=== PATIENT | female | born 1990 | race Caucasian/White ===

== ENCOUNTER 2018-06-26 21:29 | Emergency (ER) | payer SELFPAY ==
[~2018-06-26] VITALS: Ht 162.6 cm; Wt 45.4 kg
[2018-06-26 21:30] VITALS: BP_SYST 116
[2018-06-26] MEDS ORDERED: KETOROLAC TROMETHAMINE 30 MG VIAL IM ONE (22:30)
[2018-06-26] MEDS ORDERED: OSELTAMIVIR PHOSPHATE 75 MG CAPSULE PO ONE (22:30)
[2018-06-26] MEDS ORDERED: ONDANSETRON 4 MG ODT TAB PO ONE (23:30)
[2018-06-26 23:40] VITALS: BP_SYST 98
== END 2018-06-26 23:40 | disposition home or self-care (01) ==
LOC: SED 21:29
DX: J10.1 Influenza due to other identified influenza virus with other respiratory manifestations (principal); R11.10 Vomiting, unspecified
CPT/HCPCS: 36415; 86710; 96372; 99283; G9035; J1885; Q0162

== ENCOUNTER 2018-08-14 01:54 | Emergency (ER) | payer OTHER ==
[~2018-08-14] VITALS: Ht 160 cm; Wt 49.0 kg
[2018-08-14 01:58] VITALS: BP_SYST 159
== END 2018-08-14 02:30 | disposition home or self-care (01) ==
LOC: SED 01:54
DX: S60.222A Contusion of left hand, initial encounter (principal); W22.8XXA Striking against or struck by other objects, initial encounter; Y93.89 Activity, other specified; Y92.89 Other specified places as the place of occurrence of the external cause; Y99.8 Other external cause status
CPT/HCPCS: 99283

== ENCOUNTER 2018-09-09 16:07 | Emergency (ER) | payer OTHER ==
[~2018-09-09] VITALS: Ht 160 cm; Wt 49.9 kg
[2018-09-09 16:27] VITALS: BP_SYST 109
[2018-09-09 17:13] LABS: BASOPHILS % (AUTO) 0.5 % (0.0-2.0); EOSINOPHILS # (AUTO) 0.1 K/uL (0.0-0.4); EOSINOPHILS % (AUTO) 1.3 % (0.0-4.0); HEMATOCRIT 38.2 % (36-48); HEMOGLOBIN 12.7 g/dL (12.0-16.0); LYMPHOCYTES # (AUTO) 1.5 K/uL (1.0-5.5); LYMPHOCYTES % (AUTO) 24.2 % (20.5-51.5); MEAN CORPUSCULAR HEMOGLOBIN 29 pg (27-31); MEAN CORPUSCULAR HGB CONC 33 % (32-36); MEAN CORPUSCULAR VOLUME 88 fL (79.0-98.0); MONOCYTES # (AUTO) 0.4 K/uL (0.0-1.0); MONOCYTES % (AUTO) 6.8 % (1.7-9.3); NEUTROPHILS # (AUTO) 4.2 K/uL (1.8-7.7); NEUTROPHILS % (AUTO) 67.2 % (40.0-70.0); PLATELET COUNT (AUTO) 243 K/uL (130-430); RED BLOOD CELL COUNT(AUTO) 4.37 MIL/uL (4.2-6.2); RED CELL DISTRIBUTION WIDTH 12.9 % (9.0-15.0); WHITE BLOOD COUNT (AUTO) 6.2 K/uL (4.8-10.8)
[2018-09-09 17:32] LABS: CALCIUM 9.7 mg/dL (8.4-11.0); CREATININE 0.6 mg/dL (0.55-1.30); POTASSIUM 4.1 mmol/L (3.5-5.1)
[2018-09-09 17:38] LABS: ALBUMIN 3.8 g/dL (3.4-4.8); TOTAL BILIRUBIN 0.5 mg/dL (0.0-1.0)
[2018-09-09 17:52] LABS: PROTHROMBIN TIME 10.4 SECS (9.5-12.5)
--- NOTE | 2018-09-09 18:04 | NUR ---
Patient to ER bed 2 to gown for evaluation. Side rails up. Report given to Franco FLORES.
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
--- NOTE | 2018-09-09 18:30 | NUR ---
ER at bedside examining patient.
--- NOTE | 2018-09-09 19:13 | NUR ---
Patient given written and verbal discharge instructions and verbalizes understanding. ER MD discussed with patient the results and treatment provided. Patient in stable condition. ID arm band removed. Rx of NORCO,MOTRIN,PENICILLIN given. Patient educated on pain management and to follow up with PMD. Pain Scale 0. Opportunity for questions provided and answered. Medication side effect fact sheet provided.
[2018-09-09 19:16] VITALS: BP_SYST 109
== END 2018-09-09 19:13 | disposition home or self-care (01) ==
LOC: SED 16:07
DX: S30.1XXA Contusion of abdominal wall, initial encounter (principal); K04.7 Periapical abscess without sinus; R07.89 Other chest pain; W50.0XXA Accidental hit or strike by another person, initial encounter; Y93.89 Activity, other specified; Y92.69 Other specified industrial and construction area as the place of occurrence of the external cause; Y99.8 Other external cause status
CPT/HCPCS: 36415; 71045; 80053; 81025; 82150-TC; 83690-TC; 84703; 85025; 85610-TC; 85730-TC; 86710; 99284

== ENCOUNTER → 2018-10-09 | Emergency (ER) | payer MEDICAID, OTHER ==
[~2018-10-09] VITALS: Ht 160 cm; Wt 49.4 kg
[~2018-10-09] MED LIST: KETOROLAC TROMETHAMINE 30 MG VIAL IVP ONE; METH40TA14 PO; NACL 0.9% 1,000 ML IV ONE; ONDANSETRON 4 MG ODT TAB PO ONE; ONDANSETRON HCL 4 MG/2 ML VIAL IVP ONE
[2018-10-09 01:18] VITALS: BP_SYST 112
[2018-10-09 02:09] LABS: BASOPHILS # (AUTO) 0.1 K/uL (0.0-0.2); BASOPHILS % (AUTO) 0.8 % (0.0-2.0); EOSINOPHILS # (AUTO) 0.2 K/uL (0.0-0.4); EOSINOPHILS % (AUTO) 2.7 % (0.0-4.0); HEMATOCRIT 37.4 % (36-48); HEMOGLOBIN 12.4 g/dL (12.0-16.0); LYMPHOCYTES % (AUTO) 43.9 % (20.5-51.5); MEAN CORPUSCULAR HEMOGLOBIN 29 pg (27-31); MEAN CORPUSCULAR HGB CONC 33 % (32-36); MEAN CORPUSCULAR VOLUME 86 fL (79.0-98.0); MONOCYTES # (AUTO) 0.7 K/uL (0.0-1.0); MONOCYTES % (AUTO) 9.5 % (1.7-9.3); NEUTROPHILS % (AUTO) 43.1 % (40.0-70.0); PLATELET COUNT (AUTO) 320 K/uL (130-430); RED BLOOD CELL COUNT(AUTO) 4.34 MIL/uL (4.2-6.2); RED CELL DISTRIBUTION WIDTH 13.7 % (9.0-15.0); WHITE BLOOD COUNT (AUTO) 6.9 K/uL (4.8-10.8)
[2018-10-09 02:22] LABS: CALCIUM 9.8 mg/dL (8.4-11.0); CREATININE 0.7 mg/dL (0.55-1.30); POTASSIUM 3.4 mmol/L (3.5-5.1)
[2018-10-09 02:26] LABS: ALBUMIN 3.9 g/dL (3.4-4.8); TOTAL BILIRUBIN 0.6 mg/dL (0.0-1.0)
[2018-10-09 03:59] VITALS: BP_SYST 118
== END | disposition still patient (30) ==
LOC: SED 01:11
DX: R10.84 Generalized abdominal pain (principal); R11.2 Nausea with vomiting, unspecified
CPT/HCPCS: 36415; 80053; 83690; 85025; 86710; 99283; Q0162

== ENCOUNTER 2019-06-27 12:55 | Emergency (ER) | payer MEDICAID ==
[~2019-06-27] VITALS: Ht 162.6 cm; Wt 55.8 kg
[~2019-06-27 12:55] MED LIST changes: -KETOROLAC TROMETHAMINE 30 MG VIAL IVP ONE; -NACL 0.9% 1,000 ML IV ONE; -ONDANSETRON 4 MG ODT TAB PO ONE; -ONDANSETRON HCL 4 MG/2 ML VIAL IVP ONE
[2019-06-27 14:03] VITALS: BP_SYST 122
--- NOTE | 2019-06-27 14:12 | NUR ---
Patient triaged and placed in waiting room. VSS and patient appears in no acute distress at this time. Accompanied by brother, awaiting available bed, and MD notified of need for MSE.
--- NOTE | 2019-06-27 17:55 | NUR ---
complaining of tooth pain. Reports out of methadone requesting refill of medication. Pain 02/17. Patient has appointment with tomorrow with methadone clinic. No other complaints/injuries per patient or as noted. Will continue to monitor.
--- NOTE | 2019-06-27 17:55 | NUR ---
ELLEN Aguilera at bedside examining patient.
--- NOTE | 2019-06-27 17:56 | NUR ---
Patient is awake, alert, and oriented x4. Patient reports that she missed her methadone appointment and needs a dose because she is withdrawing.
[2019-06-27] MEDS ORDERED: METHADONE HCL 10 MG TABLET PO ONE (18:00)
[2019-06-27 18:58] VITALS: BP_SYST 114
--- NOTE | 2019-06-27 18:59 | NUR ---
Patient given written and verbal discharge instructions and verbalizes understanding. ER MD discussed with patient the results and treatment provided. Patient in stable condition. ID arm band removed. Patient educated on pain management and to follow up with PMD. Pain Scale 0/10. Opportunity for questions provided and answered. Medication side effect fact sheet provided.
== END 2019-06-27 18:58 | disposition home or self-care (01) ==
LOC: SED 12:55
DX: Z04.6 Encounter for general psychiatric examination, requested by authority (principal); Z76.5 Malingerer [conscious simulation]
CPT/HCPCS: 99282; 99283

== ENCOUNTER 2019-11-12 16:34 | Emergency (ER) | payer MEDICAID, SELFPAY ==
[~2019-11-12] VITALS: Ht 160 cm; Wt 55.8 kg
[2019-11-12 16:45] VITALS: BP_SYST 150
--- NOTE | 2019-11-12 17:07 | NUR ---
Patient to ER bed 05 to gown for evaluation. Side rails up.
[2019-11-12] MEDS ORDERED: NACL 0.9% 1,000 ML IV ONE (17:14)
[2019-11-12] MEDS ORDERED: ONDANSETRON HCL 4 MG/2 ML VIAL IVP ONE (17:15)
--- NOTE | 2019-11-12 17:15 | NUR ---
Pt came to ER for x8 vomiting episodes, nausea, abd pain. Pt was brought by mother and assisted in from [employer] via w/c. Pt anxious, tachhycardic, Addendum: 11/12/19 at 1808 by SDEDDW Pt came to ER for x8 vomiting episodes, nausea, abd pain. Pt was brought by mother and assisted in from parking [employer] via w/c. Pt anxious and tachycardic on monitor.
--- NOTE | 2019-11-12 17:30 | NUR ---
ER at bedside examining patient.
[2019-11-12 17:31] LABS: BASOPHILS % (AUTO) 0.6 % (0.0-2.0); EOSINOPHILS % (AUTO) 0.6 % (0.0-4.0); HEMATOCRIT 40.9 % (36-48); HEMOGLOBIN 13.3 g/dL (12.0-16.0); LYMPHOCYTES # (AUTO) 1.5 K/uL (1.0-5.5); LYMPHOCYTES % (AUTO) 37.2 % (20.5-51.5); MEAN CORPUSCULAR HEMOGLOBIN 30 pg (27-31); MEAN CORPUSCULAR HGB CONC 33 % (32-36); MEAN CORPUSCULAR VOLUME 92 fL (79.0-98.0); MONOCYTES # (AUTO) 0.5 K/uL (0.0-1.0); MONOCYTES % (AUTO) 11.3 % (1.7-9.3); NEUTROPHILS % (AUTO) 50.3 % (40.0-70.0); PLATELET COUNT (AUTO) 260 K/uL (130-430); RED BLOOD CELL COUNT(AUTO) 4.45 MIL/uL (4.2-6.2); RED CELL DISTRIBUTION WIDTH 13.7 % (9.0-15.0); WHITE BLOOD COUNT (AUTO) 4.1 K/uL (4.8-10.8)
[2019-11-12 18:01] LABS: CALCIUM 9.8 mg/dL (8.4-11.0); CREATININE 0.83 mg/dL (0.55-1.30); POTASSIUM 3.1 mmol/L (3.5-5.1)
--- NOTE | 2019-11-12 18:03 | NUR ---
Pt mother called and left phone number for updates in case of change in status ([phone])
[2019-11-12 18:05] LABS: ALBUMIN 4.4 g/dL (3.4-4.8); TOTAL BILIRUBIN 0.4 mg/dL (0.0-1.0)
[2019-11-12 18:11] LABS: CANNABINOID, URINE POSITIVE (NEG <=50)
[2019-11-12 18:12] LABS: BARBITURATE, URINE NEGATIVE (NEG <=200); BENZODIAZEPINE, URINE NEGATIVE (NEG <=150); COCAINE, URINE NEGATIVE (NEG <=150); METHAMPHETAMINES SCREEN,URINE NEGATIVE (NEG <=500); PHENCYCLIDINE SCREEN,URINE NEGATIVE (NEG <=25); URINE AMPHETAMINE NEGATIVE (NEG <=500); URINE METHADONE POSITIVE (NEG <=200)
[2019-11-12 18:13] LABS: OPIATE, URINE NEGATIVE (NEG <=100); UR TRICYCLIC ANTIDEPRESSANTS NEGATIVE (NEG <=300); URINE OXYCODONE SCREEN NEGATIVE (NEG <=100); URINE PROPOXYPHENE SCREEN NEGATIVE (NEG <=300)
[2019-11-12] MEDS ORDERED: POTASSIUM CHLORIDE 20 MEQ TAB.PRT.SR PO ONE (18:30)
[2019-11-12 19:06] VITALS: BP_SYST 150
--- NOTE | 2019-11-12 19:07 | NUR ---
Patient given written and verbal discharge instructions and verbalizes understanding. ER MD discussed with patient the results and treatment provided. Patient in stable condition. ID arm band removed. IV catheter removed intact and dressing applied, no active bleeding. Rx of Zofran given. Patient educated on pain management and to follow up with PMD. Pain Scale 0/10. Opportunity for questions provided and answered. Medication side effect fact sheet provided.
--- NOTE | 2019-11-15 13:30 | NUR ---
Patient was notified by [facility], her CoVID-19 "Detected" result and instructed to follow the provided Home Isolation Instructions, patient verbalizes understanding.
== END 2019-11-12 19:06 | disposition home or self-care (01) ==
LOC: SED 16:34 → MERGE 16:34 → SED 19:06
DX: U07.1 COVID-19 (principal); B34.9 Viral infection, unspecified; E87.6 Hypokalemia; F11.23 Opioid dependence with withdrawal
CPT/HCPCS: 71045; 80053; 80307; 81002; 81025; 83690; 85025; 85379; 86710; 96361; 96374; 99284; C9803; J2405; J7030; U0003

== ENCOUNTER 2019-12-03 13:55 | Emergency (ER) | payer MEDICAID, SELFPAY ==
[~2019-12-03] VITALS: Ht 160 cm; Wt 54.4 kg
[2019-12-03 14:26] VITALS: BP_SYST 117
[2019-12-03 15:12] VITALS: BP_SYST 121
== END 2019-12-03 15:12 | disposition home or self-care (01) ==
LOC: SED 13:55
DX: R06.02 Shortness of breath (principal); Z20.828 Contact with and (suspected) exposure to other viral communicable diseases
CPT/HCPCS: 99283

== ENCOUNTER 2021-02-20 09:08 | Emergency (ER) | payer MEDICAID, SELFPAY ==
[~2021-02-20] VITALS: Ht 162.6 cm; Wt 55.8 kg
[2021-02-20 09:23] VITALS: BP_SYST 105
[2021-02-20] MEDS ORDERED: LevALBUTEROL HCL 1.25 MG/0.5 ML *CONC.* VIAL.NEB (XOPENEX CONC.) INH ONE (10:00)
[2021-02-20] MEDS ORDERED: ALBMDI INH (10:33)
== END 2021-02-20 09:15 | disposition home or self-care (01) ==
LOC: SED 09:08
DX: J11.1 Influenza due to unidentified influenza virus with other respiratory manifestations (principal); F11.90 Opioid use, unspecified, uncomplicated; Z20.822 Contact with and (suspected) exposure to COVID-19
CPT/HCPCS: 71045; 94640; 99284; C9803; J7612; U0003

== ENCOUNTER 2021-02-23 13:14 | Emergency (ER) | payer MEDICAID, SELFPAY ==
[~2021-02-23] VITALS: Ht 162.6 cm; Wt 55.8 kg
[~2021-02-23 13:14] MED LIST changes: +ALBMDI INH
[2021-02-23 13:53] VITALS: BP_SYST 165
[2021-02-23] MEDS ORDERED: AMOX500C2 PO (15:41)
[2021-02-23] MEDS ORDERED: PRED50TA PO (15:55)
[2021-02-23 16:00] VITALS: BP_SYST 165
== END 2021-02-23 16:00 | disposition home or self-care (01) ==
LOC: SED 13:14
DX: J40 Bronchitis, not specified as acute or chronic (principal); Z79.899 Other long term (current) drug therapy; Z20.822 Contact with and (suspected) exposure to COVID-19
CPT/HCPCS: 36415; 71045; 86710; 99284

== ENCOUNTER 2021-02-27 23:11 | Emergency (ER) | payer MEDICAID, SELFPAY ==
[~2021-02-27] VITALS: Ht 162.6 cm; Wt 55.8 kg
[2021-02-27 23:11] VITALS: BP_SYST 121
[~2021-02-27 23:11] MED LIST changes: +AMOX500C2 PO; +PRED50TA PO
--- NOTE | 2021-02-27 23:11 | NUR ---
Patient triaged and placed in waiting room. VSS and patient appears in no acute distress at this time. Accompanied by self, awaiting available bed, and MD notified of need for MSE.
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
--- NOTE | 2021-02-28 00:16 | NUR ---
ER at bedside examining patient.
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
[2021-02-28] MEDS ORDERED: DOXY100T2 PO (00:27)
[2021-02-28] MEDS ORDERED: BENZ-16 PO (00:27)
--- NOTE | 2021-02-28 00:30 | NUR ---
XR AT BEDSIDE
--- NOTE | 2021-02-28 01:03 | NUR ---
Patient given written and verbal discharge instructions and verbalizes understanding. ER MD discussed with patient the results and treatment provided. Patient in stable condition. ID arm band removed. Rx of BENZONATATE, DOXYCYLINE HYCLATE given. Patient educated on pain management and to follow up with PMD. Pain Scale 2/10. Opportunity for questions provided and answered. Medication side effect fact sheet provided.
[2021-02-28 01:09] VITALS: BP_SYST 121
== END 2021-02-28 01:03 | disposition home or self-care (01) ==
LOC: SED 23:11
DX: M54.2 Cervicalgia (principal); J18.9 Pneumonia, unspecified organism; Z79.899 Other long term (current) drug therapy; Y04.0XXA Assault by unarmed brawl or fight, initial encounter; Y93.89 Activity, other specified; Y92.89 Other specified places as the place of occurrence of the external cause; Y99.8 Other external cause status
CPT/HCPCS: 71045; 99283

== ENCOUNTER 2023-03-18 01:03 | Emergency (ER) | payer MEDICAID ==
[~2023-03-18] VITALS: Ht 162.6 cm; Wt 55.8 kg
[~2023-03-18 01:03] MED LIST changes: +BENZ-16 PO; +DOXY100T2 PO
[2023-03-18 01:13] VITALS: BP_SYST 126; PULSE 89; RESP 16; TEMP 97.9; O2SAT 99
[2023-03-18] MEDS ORDERED: LIDOCAINE PATCH 5% 1 EA TP ONE (02:00)
[2023-03-18] MEDS ORDERED: KETOROLAC TROMETHAMINE 30 MG VIAL IM ONE (02:00)
[2023-03-18] MEDS ORDERED: NAPR-688 PO (02:07)
[2023-03-18] MEDS ORDERED: CYCL10TA24 PO (02:07)
[2023-03-18] MEDS ORDERED: DICL20GE TP (02:07)
[2023-03-18] MEDS ORDERED: LIDO1ADH22 TP (02:07)
[2023-03-18] MEDS ORDERED: NAPROXEN 250 MG TABLET PO ONE (02:15)
[2023-03-18 02:30] VITALS: BP_SYST 122; PULSE 78; RESP 18; TEMP 97.9; O2SAT 97
[2023-03-18] MEDS ORDERED: IBUPROFEN 800 MG TABLET PO ONE (02:30)
== END 2023-03-18 02:30 | disposition home or self-care (01) ==
LOC: SED 01:03
DX: S29.012A Strain of muscle and tendon of back wall of thorax, initial encounter (principal); M25.512 Pain in left shoulder; M54.2 Cervicalgia; Z79.899 Other long term (current) drug therapy; X50.0XXA Overexertion from strenuous movement or load, initial encounter; Y93.89 Activity, other specified; Y92.89 Other specified places as the place of occurrence of the external cause; Y99.8 Other external cause status
CPT/HCPCS: 99283; J1885

== ENCOUNTER 2023-03-18 23:05 | Emergency (ER) | payer MEDICAID ==
[~2023-03-18] VITALS: Ht 162.6 cm; Wt 55.8 kg
[~2023-03-18 23:05] MED LIST changes: +CYCL10TA24 PO; +DICL20GE TP; +LIDO1ADH22 TP; +NAPR-688 PO
[2023-03-18 23:15] VITALS: BP_SYST 116; PULSE 75; RESP 16; TEMP 97.9; O2SAT 99
[2023-03-19 00:26] LABS: BASOPHILS % (AUTO) 0.6 % (0.0-2.0); EOSINOPHILS # (AUTO) 0.2 K/uL (0.0-0.4); EOSINOPHILS % (AUTO) 2.3 % (0.0-4.0); HEMATOCRIT 39.7 % (36-48); HEMOGLOBIN 13.1 g/dL (12.0-16.0); LYMPHOCYTES % (AUTO) 37.9 % (20.5-51.5); MEAN CORPUSCULAR HEMOGLOBIN 30 pg (27-31); MEAN CORPUSCULAR HGB CONC 33 % (32-36); MEAN CORPUSCULAR VOLUME 91 fL (79.0-98.0); MONOCYTES # (AUTO) 0.4 K/uL (0.0-1.0); MONOCYTES % (AUTO) 5.5 % (1.7-9.3); NEUTROPHILS # (AUTO) 4.2 K/uL (1.8-7.7); NEUTROPHILS % (AUTO) 53.7 % (40.0-70.0); PLATELET COUNT (AUTO) 250 K/uL (130-430); RED BLOOD CELL COUNT(AUTO) 4.35 MIL/uL (4.2-6.2); RED CELL DISTRIBUTION WIDTH 13.3 % (9.0-15.0); WHITE BLOOD COUNT (AUTO) 7.8 K/uL (4.8-10.8)
[2023-03-19] MEDS ORDERED: LIDOCAINE PATCH 5% 1 EA TP ONE (00:30)
[2023-03-19 00:33] LABS: BILIRUBIN,URINE NEGATIVE (NEGATIVE); BLOOD, URINE NEGATIVE (NEGATIVE); CLARITY/URINE CLEAR (CLEAR); COLOR,URINE YELLOW (YELLOW); GLUCOSE,URINE NEGATIVE (NEGATIVE); KETONES,URINE 1+ (NEGATIVE); LEUKOCYTE ESTERASE ,URINE NEGATIVE (NEGATIVE); NITRITE, URINE NEGATIVE (NEGATIVE); PROTEIN URINE NEGATIVE (NEGATIVE); UROBILINOGEN,URINE 0.2 (0.2-1.0)
[2023-03-19 00:44] LABS: CALCIUM 9.9 mg/dL (8.4-11.0); CREATININE 0.69 mg/dL (0.55-1.30); POTASSIUM 3.7 mmol/L (3.5-5.1)
[2023-03-19 00:52] LABS: ALBUMIN 4.7 g/dL (3.4-4.8); TOTAL BILIRUBIN 0.6 mg/dL (0.0-1.0); TOTAL PROTEIN, SERUM 8.9 g/dL (6.4-8.3)
[2023-03-19 01:06] VITALS: BP_SYST 118; PULSE 73; RESP 16; TEMP 97.9; O2SAT 99
== END 2023-03-19 01:06 | disposition home or self-care (01) ==
LOC: SED 23:05
DX: N60.12 Diffuse cystic mastopathy of left breast (principal); N60.11 Diffuse cystic mastopathy of right breast; M54.6 Pain in thoracic spine; R53.1 Weakness; R42 Dizziness and giddiness; F11.90 Opioid use, unspecified, uncomplicated; Z79.899 Other long term (current) drug therapy
CPT/HCPCS: 36415; 71046-TC; 72040-TC; 80053; 81001; 81003; 81025; 85025; 99284